=== PATIENT | female | born 1955 | race Caucasian/White ===

== ENCOUNTER 2016-11-11 08:58 | Emergency (ER) | payer MEDICAID ==
[~2016-11-11] VITALS: Ht 152.4 cm; Wt 86.0 kg
[2016-11-11] MEDS ORDERED: TRAMADOL 50MG TABLET PO ONE (11:15)
[2016-11-11] MEDS ORDERED: LIDOCAINE HCL 1% 20ML VIAL (Pyxis) INJ MC ONE (11:30)
[2016-11-11] MEDS ORDERED: BACITRACIN ZINC OINT UDPKT TOP ONE (11:30)
[2016-11-11 12:15] VITALS: BP 128/66
[2016-11-11] MEDS ORDERED: CEFAZOLIN SODIUM 1000MG/VIAL IM ONE (12:15)
[2016-11-11] MEDS ORDERED: LIDOCAINE HCL 1% 20ML VIAL (Pyxis) INJ INFIL ONE (12:15)
== END 2016-11-11 13:16 | disposition left against medical advice (07) ==
LOC: ER 12:19
DX: S61.210A Laceration without foreign body of right index finger without damage to nail, initial encounter (principal); E11.9 Type 2 diabetes mellitus without complications; Z90.49 Acquired absence of other specified parts of digestive tract; W27.8XXA Contact with other nonpowered hand tool, initial encounter; Y93.89 Activity, other specified; Y92.89 Other specified places as the place of occurrence of the external cause; Y99.0 Civilian activity done for income or pay
CPT/HCPCS: 64450; 73130; 96372; 99284; J0690; J3490; Z7610